=== PATIENT | male | born 1945 | race Caucasian/White ===

== ENCOUNTER → 2018-02-13 12:38 | Outpatient (CLI) | payer MEDICARE, SELFPAY ==
[2018-02-13 13:39] LABS: Add Manual Diff / Slide Review NO; Basophils Percent Auto 0.9 % (0-2); Eosinophils Percent Auto 5.3 % (2-4); Hemoglobin 12.8 g/dL (13.5-17.5); Lymphocytes Percent Auto 17.6 % (25-40); Mean Corpuscular HGB Conc 34.6 % (30-36); Mean Corpuscular Hemoglobin 31.6 PG (26-34); Mean Corpuscular Volume 91.4 fL (80-100); Neutrophils Absolute Auto 3500 /uL (3000-5900); Neutrophils Percent Auto 66.2 % (50-75); Platelet Count 158 X10^3/uL (150-400); Red Blood Cell Count 4.04 X10^6/uL (4.5-5.9); Red Cell Distribution Width 13.9 % (11.6-14.8); White Blood Cell Count 5.3 X10^3/uL (4.5-11.0)
[2018-02-13 13:50] LABS: Alanine Aminotransferase 26 IU/L (21-72); Albumin 4.1 g/dL (3.5-5.0); Albumin Globulin Ratio 1.6 (1.0-2.8); Alkaline Phosphatase 90 U/L (38-126); Aspartate Aminotransferase 21 IU/L (17-59); BUN Creatinine Ratio 24.4 (6-22); Bilirubin Total 0.4 mg/dL (0.2-1.3); Calcium 9.2 mg/dL (8.4-10.2); Estimated Glomerular Filt Rate > 60.0 mL/min (>60); Globulin 2.6 g/dL (1.7-4.1); Glucose 117 mg/dL (80-110); HEMOLYSIS < 15 (0-50); Potassium 4.1 mmol/L (3.4-5.1); Sodium 140 mmol/L (137-145); Total Protein 6.7 g/dL (6.3-8.2)
[2018-02-13 14:19] LABS: Prostate Specific Antigen < 0.064 ng/mL (0.10-4.00)
== END ==
PROVIDERS: Internal Medicine Hematology & Oncology; Family Provider Internal Medicine; PCP Internal Medicine; Visit Provider Specialist
DX: C61 Malignant neoplasm of prostate (principal)
CPT/HCPCS: 36415; 80053; 84153; 85025

== ENCOUNTER → 2018-05-14 13:35 | Outpatient (CLI) | payer MEDICARE, SELFPAY ==
[2018-05-14 14:01] LABS: Add Manual Diff / Slide Review NO; Basophils Percent Auto 0.8 % (0-2); Eosinophils Percent Auto 4.6 % (2-4); Hematocrit 37.3 % (41-53); Hemoglobin 12.9 g/dL (13.5-17.5); Lymphocytes Percent Auto 15.2 % (25-40); Mean Corpuscular HGB Conc 34.6 % (30-36); Mean Corpuscular Hemoglobin 31.6 PG (26-34); Mean Corpuscular Volume 91.2 fL (80-100); Monocytes Percent Auto 9.7 % (3-14); Neutrophils Absolute Auto 3900 /uL (3000-5900); Neutrophils Percent Auto 69.7 % (50-75); Platelet Count 170 X10^3/uL (150-400); Red Blood Cell Count 4.09 X10^6/uL (4.5-5.9); Red Cell Distribution Width 13.6 % (11.6-14.8); White Blood Cell Count 5.6 X10^3/uL (4.5-11.0)
[2018-05-14 14:14] LABS: Alanine Aminotransferase 29 IU/L (21-72); Albumin 4.2 g/dL (3.5-5.0); Albumin Globulin Ratio 1.8 (1.0-2.8); Alkaline Phosphatase 98 U/L (38-126); Aspartate Aminotransferase 26 IU/L (17-59); BUN Creatinine Ratio 18.9 (6-22); Bilirubin Total 0.3 mg/dL (0.2-1.3); Blood Urea Nitrogen 17 mg/dL (9-20); Calcium 9.2 mg/dL (8.4-10.2); Carbon Dioxide 27 mmol/L (22-32); Chloride 106 mmol/L (98-107); Estimated Glomerular Filt Rate > 60.0 mL/min (>60); Globulin 2.3 g/dL (1.7-4.1); Glucose 103 mg/dL (80-110); HEMOLYSIS < 15 (0-50); Potassium 3.9 mmol/L (3.4-5.1); Sodium 142 mmol/L (137-145); Total Protein 6.5 g/dL (6.3-8.2)
[2018-05-14 14:42] LABS: Prostate Specific Antigen < 0.064 ng/mL (0.10-4.00)
== END ==
PROVIDERS: Family Provider Internal Medicine; PCP Internal Medicine; Visit Provider Nurse Practitioner Gerontology
DX: C61 Malignant neoplasm of prostate (principal)
CPT/HCPCS: 36415; 80053; 84153; 85025

== ENCOUNTER → 2018-08-06 10:58 | Outpatient (CLI) | payer MEDICARE, SELFPAY ==
[2018-08-06 11:17] LABS: Add Manual Diff / Slide Review NO; Basophils Percent Auto 1.1 % (0-2); Eosinophils Percent Auto 4.7 % (2-4); Hematocrit 38.8 % (41-53); Hemoglobin 13.2 g/dL (13.5-17.5); Lymphocytes Percent Auto 19.3 % (25-40); Mean Corpuscular HGB Conc 33.9 % (30-36); Mean Corpuscular Hemoglobin 31.1 PG (26-34); Mean Corpuscular Volume 91.6 fL (80-100); Monocytes Percent Auto 9.6 % (3-14); Neutrophils Absolute Auto 3500 /uL (3000-5900); Neutrophils Percent Auto 65.3 % (50-75); Platelet Count 180 X10^3/uL (150-400); Red Blood Cell Count 4.24 X10^6/uL (4.5-5.9); White Blood Cell Count 5.3 X10^3/uL (4.5-11.0)
[2018-08-06 11:28] LABS: Alanine Aminotransferase 29 IU/L (21-72); Albumin 4.5 g/dL (3.5-5.0); Alkaline Phosphatase 90 U/L (38-126); Aspartate Aminotransferase 22 IU/L (17-59); BUN Creatinine Ratio 18.9 (6-22); Bilirubin Total 0.3 mg/dL (0.2-1.3); Blood Urea Nitrogen 17 mg/dL (9-20); Calcium 9.2 mg/dL (8.4-10.2); Carbon Dioxide 29 mmol/L (22-32); Chloride 105 mmol/L (98-107); Estimated Glomerular Filt Rate > 60.0 mL/min (>60); Globulin 2.3 g/dL (1.7-4.1); Glucose 93 mg/dL (80-110); HEMOLYSIS < 15 (0-50); Lactate Dehydrogenase 449 U/L (313-618); Potassium 4.2 mmol/L (3.4-5.1); Sodium 143 mmol/L (137-145); Total Protein 6.8 g/dL (6.3-8.2)
[2018-08-06 11:59] LABS: Prostate Specific Antigen < 0.064 ng/mL (0.10-4.00)
[2018-08-06 12:01] LABS: Testosterone 14.7 ng/dL (71.8-623)
--- NOTE | 2018-08-11 10:45 | P.PNONC_ITS ---
PN -Subjective Interval history: Lazarus is a 73-year-old male currently receiving treatment for metastatic castrate sensitive prostate cancer. Originally diagnosed 1995 status post radical prostatectomy [place] score was 3+3. Lazarus is currently receiving Lupron 22.5 mg every 3 months. The patient also has a history of follicular lymphoma, intermediate grade, in clinical remission since 2010. The patient presents today for routine 3 month evaluation. He has no new complaints whatsoever on exam today. Overall feeling quite well. No change in activity tolerance. No new pain, no new lumps or bumps. Appetite is stable, weight is stable. No issues with bladder or bowel habits. No recent illnesses or infections. Past Medical History The patient's past medical history is significant for: 1) Metastatic castrate sensitive prostate cancer with a PSA rise only. Original diagnosis in June 1996 status post radical prostatectomy with Dr. Castillo. [place] score was 3+3. PSA was undetectable until approximately 2113-0641: PSA recordings on March 2014, September 2014, May 2015, October 2015 , and April 2016, at 0.9, 1.52, 1.42, 1.69, and 2.1. Patient transferred care to the [facility] in April 2016. Clinical staging workup: -09/13/2015. CT of the chest abdomen and pelvis dated 09/13/2015. No evidence of measurable metastatic disease. -08/06/2016. Bone scan. reporting only degenerative joint changes. Treatment: 04/25/2016 -present. Lupron 7.5 mg. Baseline PSA 2.1. 2) Non-Hodgkin lymphoma, intermediate-grade follicular subtype, originally diagnosed in 2010. Patient presented with adenopathy in the left supraclavicular, as well as in the mesenteric region. He completed 4 cycles of bendamustine and Rituxan, last administered in May of 2012, followed by 3 cycles of maintenance Rituxan, last administered in April of 2013. No radiation to the right ankle was administered. Patient remains in a clinical remission based on his last staging CT scan as described above, dated September 13, 2015. 3) right plantar fasciitis with recent imaging studies including MRI of the foot and ankle on 04/24/2016 showing no evidence of lymphoma. Home Medications and Allergies Home Medications Medication Instructions Recorded Confirmed Type acetaminophen [Tylenol Extra 500 mg PO Q6HP PRN #0 11/28/17 History Strength] leuprolide (3 month) [Lupron Depot 22.5 mg IM #0 11/28/17 History (3 month)] Allergies Allergy/AdvReac Type Severity Reaction Status Date / Time penicillin G Allergy Severe SWELLING/?ANAPHYLAXIS Unverified 01/15/18 12:55 CHILD doxycycline Allergy Mild RASH Unverified 01/15/18 12:55 Iodine and Iodide Containing Allergy Mild TOPICAL Unverified 01/15/18 12:55 Produc OKAY shellfish derived Allergy Mild Unverified 01/15/18 12:55 Exam - Constitutional positive no acute distress, positive average body habitus - Routine HEENT Exam Eye: Present: conjunctivae pink. Absent: conjunctival icterus, scleral injection ENT: Present: mucous membranes moist, oropharynx clear - Routine Neck Exam Present: supple. Absent: lymphadenopathy - Routine Chest/Breast/Axilla Exam Axillae: Absent: lymphadenopathy, mass, tenderness - Routine Respiratory Exam Present: Clear to auscultation bilaterally - Routine Cardiovascular Exam Present: RRR, S1, S2 - Routine Abdominal Exam Present: soft, normoactive bowel sounds. Absent: tenderness, distended, organomegaly, mass - Routine Extremities Exam Absent: edema, calf tenderness - Routine Skin Exam Present: intact, normal turgor. Absent: petechiae - Routine Neurological Exam Present: alert, oriented X3 - Routine Psychiatric Exam Present: normal affect Results - Labs Laboratory Last Values WBC 5.3 X10^3/uL (4.5-11.0) 08/06/18 11:06 RBC 4.24 X10^6/uL (4.5-5.9) L 08/06/18 11:06 Hgb 13.2 g/dL (13.5-17.5) L 08/06/18 11:06 Hct 38.8 % (41-53) L 08/06/18 11:06 MCV 91.6 fL (80-100) 08/06/18 11:06 MCH 31.1 PG (26-34) 08/06/18 11:06 MCHC 33.9 % (30-36) 08/06/18 11:06 RDW 14.0 % (11.6-14.8) 08/06/18 11:06 Plt Count 180 X10^3/uL (150-400) 08/06/18 11:06 Neut % (Auto) 65.3 % (50-75) 08/06/18 11:06 Lymph % (Auto) 19.3 % (25-40) L 08/06/18 11:06 [place] % (Auto) 9.6 % (3-14) 08/06/18 11:06 Eos % (Auto) 4.7 % (2-4) H 08/06/18 11:06 Baso % (Auto) 1.1 % (0-2) 08/06/18 11:06 Neut # (Auto) 3500 /uL (7023-8315) 08/06/18 11:06 Sodium 143 mmol/L (137-145) 08/06/18 11:06 Potassium 4.2 mmol/L (3.4-5.1) 08/06/18 11:06 Chloride 105 mmol/L (98-107) 08/06/18 11:06 Carbon Dioxide 29 mmol/L (22-32) 08/06/18 11:06 BUN 17 mg/dL (9-20) 08/06/18 11:06 Creatinine 0.90 mg/dL (0.66-1.25) 08/06/18 11:06 Estimated GFR > 60.0 mL/min (>60) 08/06/18 11:06 BUN/Creatinine Ratio 18.9 (6-22) 08/06/18 11:06 Glucose 93 mg/dL (80-110) 08/06/18 11:06 Calcium 9.2 mg/dL (8.4-10.2) 08/06/18 11:06 Total Bilirubin 0.3 mg/dL (0.2-1.3) 08/06/18 11:06 AST 22 IU/L (17-59) 08/06/18 11:06 ALT 29 IU/L (21-72) 08/06/18 11:06 Alkaline Phosphatase 90 U/L (38-126) 08/06/18 11:06 Lactate Dehydrogenase 449 U/L (313-618) 08/06/18 11:06 Total Protein 6.8 g/dL (6.3-8.2) 08/06/18 11:06 Albumin 4.5 g/dL (3.5-5.0) 08/06/18 11:06 Globulin 2.3 g/dL (1.7-4.1) 08/06/18 11:06 Albumin/Globulin Ratio 2.0 (1.0-2.8) 08/06/18 11:06 Prostate Specific Ag < 0.064 ng/mL (0.10-4.00) L 08/06/18 11:06 Testosterone Level 14.7 ng/dL (71.8-623) L 08/06/18 11:06 - Imaging Additional studies: Procedures Biopsy of bone marrow (08/05/12) Closed [percutaneous] [needle] biopsy of lung (06/18/12) Endoscopic destruction of other lesion or tissue of large intestine (04/06/14) Endoscopic polypectomy of large intestine (04/06/14) Rhinoscopy (12/02/13) Assessment and Plan (1) Malignant neoplasm of prostate Status: Acute This is a 73-year-old male who carries a diagnosis of metastatic castrate sensitive prostate cancer. He has no new complaints on exam today. PSA remains undetectable, testosterone is appropriately low. He is tolerating Lupron without reportable adverse effects. Green light today for Lupron injection 22.5 mg. Continue every 3 months. (2) Non-Hodgkin's lymphoma Onset Date: 08/13/13 Status: None This is a 73-year-old male who carries a history of follicular lymphoma, intermediate grade in clinical remission since 2010. Reassuringly on exam today he has no clinical signs or symptoms to suggest disease recurrence. LDH is within normal limits. No new pain, no new lumps or bumps.
== END ==
PROVIDERS: Family Provider Internal Medicine; PCP Internal Medicine; Visit Provider Internal Medicine Hematology & Oncology
DX: C61 Malignant neoplasm of prostate (principal)
CPT/HCPCS: 36415; 80053; 83615; 84153; 84403; 85025

== ENCOUNTER → 2018-10-31 14:31 | Outpatient (CLI) | payer MEDICARE, SELFPAY ==
[2018-10-31 16:31] LABS: Alanine Aminotransferase 31 IU/L (21-72); Albumin 4.2 g/dL (3.5-5.0); Albumin Globulin Ratio 1.8 (1.0-2.8); Alkaline Phosphatase 100 U/L (38-126); Aspartate Aminotransferase 22 IU/L (17-59); BUN Creatinine Ratio 17.8 (6-22); Bilirubin Total 0.2 mg/dL (0.2-1.3); Blood Urea Nitrogen 16 mg/dL (9-20); Calcium 9.1 mg/dL (8.4-10.2); Carbon Dioxide 25 mmol/L (22-32); Chloride 104 mmol/L (98-107); Estimated Glomerular Filt Rate > 60.0 mL/min (>60); Globulin 2.3 g/dL (1.7-4.1); Glucose 111 mg/dL (80-110); HEMOLYSIS < 15 (0-50); Lactate Dehydrogenase 456 U/L (313-618); Potassium 4.3 mmol/L (3.4-5.1); Sodium 140 mmol/L (137-145); Total Protein 6.5 g/dL (6.3-8.2)
[2018-10-31 16:40] LABS: Add Manual Diff / Slide Review NO; Basophils Absolute Auto 0 /uL (0-100); Basophils Percent Auto 0.7 % (0-2); Eosinophils Absolute Auto 200 /uL (0-450); Eosinophils Percent Auto 4.3 % (2-4); Hematocrit 37.8 % (41-53); Hemoglobin 12.9 g/dL (13.5-17.5); Lymphocytes Absolute Auto 900 /uL (1100-4500); Lymphocytes Percent Auto 18.7 % (25-40); Mean Corpuscular HGB Conc 34.1 % (30-36); Mean Corpuscular Hemoglobin 31.3 PG (26-34); Mean Corpuscular Volume 91.7 fL (80-100); Monocytes Absolute Auto 500 /uL (0-900); Monocytes Percent Auto 9.9 % (3-14); Neutrophils Absolute Auto 3200 /uL (1500-7000); Neutrophils Percent Auto 66.4 % (50-75); Platelet Count 173 X10^3/uL (150-400); Red Blood Cell Count 4.12 X10^6/uL (4.5-5.9); Red Cell Distribution Width 14.1 % (11.6-14.8); White Blood Cell Count 4.9 X10^3/uL (4.5-11.0)
== END ==
PROVIDERS: Family Provider Internal Medicine; PCP Internal Medicine; Visit Provider Nurse Practitioner Gerontology
DX: C61 Malignant neoplasm of prostate (principal)
CPT/HCPCS: 36415; 80053; 83615; 84153; 85025

== ENCOUNTER → 2019-03-04 11:18 | Outpatient (CLI) | payer MEDICARE, SELFPAY ==
[2019-03-04 12:53] LABS: Prostate Specific Antigen 0.079 ng/mL (0.10-4.00)
[2019-03-04 12:55] LABS: Testosterone 5.7 ng/dL (71.8-623)
== END ==
PROVIDERS: Family Provider Internal Medicine; PCP Internal Medicine; Visit Provider Internal Medicine Hematology & Oncology
DX: C61 Malignant neoplasm of prostate (principal)
CPT/HCPCS: 36415; 84153; 84403

== ENCOUNTER 2019-03-06 08:45 | Day surgery (SDC) | payer MEDICARE, SELFPAY ==
--- NOTE | 2019-03-06 | PATH_ITS ---
[facility] Accession Number: [id number] . 01 Material submitted: . PART A: colon - TRANSVERSE COLON POLYP PART B: colon - CECAL POLYP PART C: colon - COLON POLYP AT 40CM PART D: rectum - RECTAL POLYP AND BIOPSY . 02 Diagnosis: A. Transverse Colon, Polyp, Biopsy: Tubular adenoma. . B. Cecum, Polyp, Biopsy: Sessile serrated adenoma. . C. Colon, Polyp At 40 CM, Biopsy: Colonic mucosa with surface hyperplastic-type changes. Additional levels were examined. Negative for dysplasia and malignancy. . D. Rectum, Polyp And Biopsy: Tubulovillous adenoma. No evidence of malignancy or high-grade dysplasia. [facility]2019 . 02 Electronically signed: . Loretta Samuel MD, Pathologist NPI- [id number] . 01 Gross description: . Part A: TRANSVERSE COLON POLYP: Received in formalin is 1 fragment(s) of bernal, soft tissue measuring 0.3 x 0.2 x 0.2 cm which is entirely submitted and submitted entirely in 1 cassette(s) Part B: CECAL POLYP: Received in formalin is 1 fragment(s) of bernal, soft tissue measuring 0.8 x 0.5 x 0.3 cm which is entirely submitted and submitted entirely in 1 cassette(s) Part C: COLON POLYP AT 40CM: Received in formalin are 2 fragment(s) of bernal, soft tissue measuring 0.3 x 0.2 x 0.2 cm to 0.4 x 0.3 x 0.2 cm which is entirely submitted and submitted entirely in 1 cassette(s) Part D: RECTAL POLYP AND BIOPSY: Received in formalin are multiple fragment(s) of bernal, soft tissue measuring 0.1 x 0.1 x 0.1 cm to 1.4 x 1.1 x 1.0 cm which are sectioned and submitted entirely in 2 cassette(s) /[facility] . 02 Pathologist provided ICD-10: D12.0, D12.3, D12.8 . 02 CPT . 003855, 581325, 179559, 759113 Performed at: 01 [facility] [address] [id number] MD Trenton Astudillo MD Phone: [phone] Performed at: 02 [facility] [address] [place], [place] [id number] MD Loretta Samuel MD Phone: [phone]
[2019-03-06 09:39] VITALS: BP 128/81; PULSE 71; RESP 15; TEMP 36; O2SAT 98; BMI 24.9
[2019-03-06] MEDS: SODIUM CHLORIDE 0.9% 1,000 ML 200 ML IV (09:47)
--- NOTE | 2019-03-06 10:55 | PM.HP.1 ---
History of Present Illness Date Patient Seen: 03/06/19 Time Patient Seen: 10:55 Chief complaint: [id number] Narrative: Patient is here for screening colonoscopy. He has had polyps removed in the past. Last exam was 5 years ago. Patient History Surgical History Status post radical cystoprostatectomy Family History (Updated 11/09/13 @ 00:00 by Lazarus Albrecht MD) Father Family hx of prostate cancer Mother Fam hx-ischem heart disease Family history of diabetes mellitus (DM) Social History household members: spouse Family & Social History Family History Father Family hx of prostate cancer Mother Fam hx-ischem heart disease Family history of diabetes mellitus (DM) Social History: household members spouse Meds Home Medications Medication Instructions Recorded Confirmed Type Lupron Depot (3 month) 22.5 mg IM [id number] #0 11/28/17 03/06/19 History ibuprofen 200 mg PO Q4-6H PRN 03/06/19 03/06/19 History Allergies Allergy/AdvReac Type Severity Reaction Status Date / Time penicillin G Allergy Severe SWELLING/?ANAPHYLAXIS Verified 03/06/19 09:48 CHILD doxycycline Allergy Mild RASH Verified 03/06/19 09:48 Iodine and Iodide Containing Allergy Mild TOPICAL Verified 03/06/19 09:48 Produc OKAY shellfish derived Allergy Mild Verified 03/06/19 09:48 Review of Systems Review of Systems All systems reviewed & are unremarkable except as noted in HPI and below ENT Comments: Sinus drainage Gastrointestinal Comments: Some constipation at times Exam Vital Signs (past 8 hours): - 03/06/19 09:39 Temperature 96.8 F L Pulse Rate 71 Respiratory Rate 15 Blood Pressure 128/81 Pulse Oximetry 98 Narrative Exam Narrative: Pleasant cooperative patient no apparent distress. Lungs are clear to auscultation. No rales or rhonchi. Heart regular rate and rhythm no murmur gallop. Abdomen is soft nontender without mass. Vertical midline lower abdominal scar noted from the prostate operation. No obvious hernias. Patient is alert and oriented x3. Assessment & Plan Assessment & Plan narrative: The patient for a screening colonoscopy. I have discussed the procedure with them. Risks of bleeding, perforation which would necessitate major operation, failure to find remove all lesions, the potential tattoo were all discussed. All questions were answered. They wished to proceed.
--- NOTE | 2019-03-06 10:57 | PM.PREOP ---
Pre-operative Note Interval Note History & Physical reviewed/Exam performed by Physician: Yes Changes to H&P: No ASA Class (for procedural sedation): II
[2019-03-06] MEDS: MIDAZOLAM 5 MG/5 ML VIAL IV (11:23)
[2019-03-06] MEDS: fentaNYL 250 MCG/5 ML INJ IV (11:23)
--- NOTE | 2019-03-06 11:45 | PM.OP.ENDO ---
Operative Date/Time/Diagnoses Date of procedure: 03/06/19 Time of procedure: 11:45 Pre-op diagnosis: History of polyps. Post-op diagnosis: same (Multiple polyps including 1 rather large 2 cm rectal polyp) Procedure & Clinicians Study performed: Colonoscopy with cold biopsy and hot snare polypectomy Same procedure as scheduled: Yes Indications: Screening. History of polyps. Last exam 5 years ago. Surgeon: Phillip Decker Procedure Notes SCOAP/Timeout: Performed Procedure in detail: The patient was placed in the left lateral decubitus position and underwent IV sedation directed by the surgeon consisting of fentanyl and Versed. Digital exam was unremarkable. No palpable prostate.. The scope was inserted and advanced through the rectum into the sigmoid, descending, transverse, and ascending colon. A small lesion was seen presumptively in the transverse colon on the way in which was biopsied and removed. The cecum was reached identified by the ileocecal valve and the appendiceal opening. The ileocecal valve was not cannulated. There was a small perhaps 1 cm flat polyp in the cecum which was snared and appeared to be completely removed. Edges were cauterized just in case. The scope was gradually brought out. Polyps were found at 40 cm and in the rectum. The polyp in the rectum initially was a small polyp. Identified a much larger when near by. This was snared in multiple pieces.. The scope ultimately was retroflexed in the rectum. Once I had completed the patella packed a me it appeared to be completely removed with no residual. The appearance was otherwise normal on retroflexed view. There was some scarring at the anus.. The scope was removed and the patient tolerated the procedure well. Prep was very good. Scope withdrawal time: 10min(excludes polypectomy vianey Findings: polyp (Multiple in cecum, of transverse colon(may have been labeled ascending), 40 cm, rectum.) Specimen(s): other (Polyps) Complications: none Recommendations: Other recommendation (Flexible sigmoidoscopy to examine the lesion just inside the anus to make sure there is no residual or regrowth.) Follow up: months (6) Disposition: PACU
[2019-03-06 11:50] VITALS: BP 108/59; PULSE 63; RESP 15; TEMP 36.3; O2SAT 99
[2019-03-06 11:55] VITALS: BP 107/60; PULSE 59; RESP 18; O2SAT 99
[2019-03-06 12:00] VITALS: BP 136/75; PULSE 68; RESP 20; TEMP 36.4; O2SAT 97
[2019-03-06 12:04] VITALS: BP 116/72; PULSE 70; RESP 15; TEMP 36.2; O2SAT 93
[2019-03-06 12:14] VITALS: BP 126/79; PULSE 66; RESP 15; TEMP 36.2; O2SAT 98
== END 2019-03-06 12:21 | disposition home or self-care (01) ==
PROVIDERS: Family Provider Internal Medicine; PCP Internal Medicine; Visit Provider Specialist
PROC: 0DJD8ZZ Inspection of Lower Intestinal Tract, Via Natural or Artificial Opening Endoscopic (ICD-10-PCS; CPT 45378; principal; 2019-03-06 10:45)
DX: Z86.010 Personal history of colon polyps (principal); D12.0 Benign neoplasm of cecum; D12.3 Benign neoplasm of transverse colon; D12.8 Benign neoplasm of rectum
CPT/HCPCS: 45385; 45380; 88305; J2250; J3010

== ENCOUNTER 2019-09-10 06:28 | Day surgery (SDC) | payer MEDICARE, SELFPAY ==
--- NOTE | 2019-09-10 | PATH_ITS ---
[facility] Accession Number: [id number] . 01 Material submitted: . colon - POLYP NEAR ANAL VERGE . 02 Diagnosis: Rectum, Near Anal Verge, Polyp: Hyperplastic polyp. [facility] 09/11/2019 1037 Local . 02 Electronically signed: . Matteo Acuña MD, PhD, Pathologist NPI- [id number] . 01 Gross description: . POLYP NEAR ANAL VERGE: Received in formalin are 2 fragment(s) of bernal, soft tissue measuring 0.1 x 0.1 x 0.1 cm to 0.3 x 0.2 x 0.2 cm submitted entirely in 1 cassette(s) /[facility] 09/10/2019 1903 Local . 02 Pathologist provided ICD-10: K62.1 . 02 CPT . 732242 Performed at: 01 [facility] [address] [id number] MD Trenton Astudillo MD Phone: [phone] Performed at: 02 [facility] [address] [facility] [place], [place] [id number] MD Loretta Samuel MD Phone: [phone]
[2019-09-10 07:05] VITALS: BP 142/76; PULSE 96; RESP 64; TEMP 36.4; O2SAT 15; BMI 24.0
--- NOTE | 2019-09-10 08:02 | PM.HP.1 ---
History of Present Illness History of Present Illness Date Patient Seen: 09/10/19 Time Patient Seen: 07:51 Chief complaint: [id number] Narrative: The patient is a gentleman here for a flexible sigmoidoscopy he has had a large polyp removed from his rectum 5 years ago and had a recurrence in the area about 6 months ago which was removed he is here to have a flexible sigmoidoscopy to make sure nothing has grown back in that area. Patient History Surgical History Status post radical cystoprostatectomy Family & Social History Family History Father Family hx of prostate cancer Mother Fam hx-ischem heart disease Family history of diabetes mellitus (DM) Social History: household members spouse Meds Home Medications and Allergies Home Medications Medication Instructions Recorded Confirmed Type Lupron Depot (3 month) 22.5 mg IM [id number] #0 11/28/17 08/03/19 History ibuprofen 200 mg PO Q4-6H PRN 03/06/19 09/10/19 History calcium carbonate [Calcium 500] 500 mg PO DAILY 05/04/19 09/10/19 History Allergies Allergy/AdvReac Type Severity Reaction Status Date / Time penicillin G Allergy Severe SWELLING/?ANAPHYLAXIS Verified 09/10/19 07:02 CHILD doxycycline Allergy Mild RASH Verified 09/10/19 07:02 Iodine and Iodide Containing Allergy Mild TOPICAL Verified 09/10/19 07:02 Produc OKAY shellfish derived Allergy Mild Verified 09/10/19 07:02 Review of Systems Review of Systems ROS Unobtainable: All systems reviewed & are unremarkable except as noted in HPI and below Exam Vital Signs (past 8 hours): - 09/10/19 07:05 Temperature 97.6 F Pulse Rate 96 H Respiratory Rate 64 H Blood Pressure 142/76 H Pulse Oximetry 15 L Oxygen Delivery Method Room Air Narrative Exam Narrative: Pleasant cooperative patient no apparent distress. Lungs are clear to auscultation. No rales or rhonchi. Heart regular rate and rhythm no murmur gallop. Abdomen is soft nontender without mass. No obvious hernias. Patient is alert and oriented x3. Assessment & Plan Assessment & Plan narrative: The patient for a flexible sigmoidoscopy. I have discussed the procedure with them. Risks of bleeding, perforation which would necessitate major operation, failure to find remove all lesions. All questions were answered. They wished to proceed.
--- NOTE | 2019-09-10 08:04 | PM.PREOP ---
Pre-operative Note Interval Note History & Physical reviewed/Exam performed by Physician: Yes Changes to H&P: No ASA Class (for procedural sedation): II
--- NOTE | 2019-09-10 08:20 | PM.OP.ENDO ---
Operative Date/Time/Diagnoses Date of procedure: 09/10/19 Time of procedure: 08:20 Pre-op diagnosis: History large rectal polyp Post-op diagnosis: same (No residual polyp seen. No regrowth.) Procedure & Clinicians Study performed: Flexible sigmoidoscopy with biopsy Same procedure as scheduled: Yes Indications: Patient has had recurrent large rectal polyps. He had 1 remove 6 months ago. He is here to make sure nothing has grown back and that the complete lesion was removed Surgeon: Phillip Decker Procedure Notes SCOAP/Timeout: Performed Procedure in detail: The patient is placed in left lateral decubitus position. Digital exam was unremarkable. I could not feel is prostate. The scope was inserted and advanced to a level of 55. There is an gradually brought out. No lesions were seen going in or out. I did a very slow careful exam. I retroflexed in the rectum a small a very tiny lesion not far from the anal verge. I biopsied and removed this. I did see an area that appeared to be scarred probably represents the scarred base of where I removed his polyp at the last colonoscopy 6 months ago. The scope was removed and the patient tolerated the procedure well. Scope withdrawal time: Not applicable Sedation minutes: 0 (Patient was not sedated) Findings: polyp Specimen(s): other (Polyp) Complications: none Post-procedure Recommendations: Colonscopy in 3 years (Due to his propensity to form large polyps at 5 year intervals) Follow up: as needed Disposition: same day surgery
[2019-09-10 08:27] VITALS: BP 140/76; PULSE 54; RESP 20; TEMP 36.1; O2SAT 98
== END 2019-09-10 08:44 | disposition home or self-care (01) ==
PROVIDERS: Family Provider Internal Medicine; PCP Internal Medicine; Visit Provider Specialist
PROC: 0DJD8ZZ Inspection of Lower Intestinal Tract, Via Natural or Artificial Opening Endoscopic (ICD-10-PCS; CPT 45378; principal; 2019-09-10 07:45)
DX: K62.1 Rectal polyp (principal)
CPT/HCPCS: 45331; J2250; J3010

== ENCOUNTER → 2019-09-24 11:46 | Outpatient (CLI) | payer MEDICARE, SELFPAY ==
--- NOTE | 2019-09-24 11:49 | DI.RAD.S_ITS ---
PROCEDURE: XR CHEST 2V INDICATIONS: lump in epigastric, ? xyphoid process TECHNIQUE: 2 views of the chest were acquired. COMPARISON: [facility], , CHEST 2 VIEW, 11/21/2016, 9:47. [facility], , CHEST 1 VIEW, 01/10/2016, 14:12. FINDINGS: Surgical changes and devices: None. Lungs and pleura: Lungs are clear. No pleural effusions or pneumothorax. Mediastinum: Mediastinal contours are normal. Heart size is normal. Bones and chest wall: No suspicious bony abnormalities. Soft tissues appear unremarkable. IMPRESSION: Normal for age, source of current palpable abnormality in the anterior midline chest symptoms is not seen. Dictated by: Bridger Hung M.D. on 09/24/2019 at 13:54 Approved by: Bridger Hung M.D. on 09/24/2019 at 13:54
== END ==
PROVIDERS: Family Provider Internal Medicine; PCP Internal Medicine; Visit Provider Internal Medicine Hematology & Oncology
DX: C61 Malignant neoplasm of prostate (principal); R19.06 Epigastric swelling, mass or lump
CPT/HCPCS: 71046

== ENCOUNTER → 2019-11-16 08:55 | Outpatient (CLI) | payer MEDICARE, SELFPAY ==
[2019-11-16 09:34] LABS: Add Manual Diff / Slide Review NO; Basophils Absolute Auto 100 /uL (0-100); Basophils Percent Auto 1.2 % (0-2); Eosinophils Absolute Auto 500 /uL (0-450); Eosinophils Percent Auto 10.9 % (2-4); Hematocrit 37.1 % (41-53); Hemoglobin 12.6 g/dL (13.5-17.5); Lymphocytes Absolute Auto 900 /uL (1100-4500); Lymphocytes Percent Auto 18.9 % (25-40); Mean Corpuscular Hemoglobin 31.4 PG (26-34); Mean Corpuscular Volume 92.2 fL (80-100); Monocytes Absolute Auto 500 /uL (0-900); Neutrophils Absolute Auto 2700 /uL (1500-7000); Platelet Count 162 X10^3/uL (150-400); Red Blood Cell Count 4.02 X10^6/uL (4.5-5.9); Red Cell Distribution Width 13.7 % (11.6-14.8); White Blood Cell Count 4.5 X10^3/uL (4.5-11.0)
[2019-11-16 09:42] LABS: Alanine Aminotransferase 17 IU/L (<50); Albumin 4.2 g/dL (3.5-5.0); Albumin Globulin Ratio 1.7 (1.0-2.8); Alkaline Phosphatase 80 U/L (38-126); Aspartate Aminotransferase 25 IU/L (17-59); BUN Creatinine Ratio 18.9 (6-22); Bilirubin Total 0.3 mg/dL (0.2-1.3); Blood Urea Nitrogen 17 mg/dL (9-20); Calcium 9.4 mg/dL (8.4-10.2); Carbon Dioxide 27 mmol/L (22-32); Chloride 106 mmol/L (98-107); Estimated Glomerular Filt Rate > 60.0 mL/min (>60); Globulin 2.5 g/dL (1.7-4.1); Glucose 102 mg/dL (80-110); HEMOLYSIS < 15 (0-50); Lactate Dehydrogenase 416 U/L (313-618); Potassium 4.1 mmol/L (3.4-5.1); Sodium 142 mmol/L (137-145); Total Protein 6.7 g/dL (6.3-8.2)
[2019-11-16 10:12] LABS: Prostate Specific Antigen 0.116 ng/mL (0.10-4.00)
[2019-11-16 10:15] LABS: Testosterone 5.61 ng/dL (71.8-623)
[2019-11-18 15:08] LABS: Beta-2-Microglobulin 2.02 mg/L (< 2.52)
== END ==
PROVIDERS: Family Provider Internal Medicine; PCP Internal Medicine; Referring Provider Internal Medicine Hematology & Oncology; Visit Provider Internal Medicine Hematology & Oncology
DX: C61 Malignant neoplasm of prostate (principal); C85.90 Non-Hodgkin lymphoma, unspecified, unspecified site
CPT/HCPCS: 36415; 80053; 82232; 83615; 84153; 84403; 85025

== ENCOUNTER → 2019-11-26 15:28 | Outpatient (CLI) | payer MEDICARE, SELFPAY ==
--- NOTE | 2019-11-26 15:30 | DI.MRI.S_ITS ---
PROCEDURE: MR PELIS WO/W CON INDICATIONS: castration refractory prostate cancer TECHNIQUE: Noncontrast coronal T1 spin echo and STIR, sagittal T1 spin echo with fat saturation and STIR, axial T1 spin echo and T2 fast spin echo with fat saturation. After the administration of contrast, axial/sagittal/coronal T1 spin echo with fat saturation through the pelvis. COMPARISON: [facility], CT, NECK/CHEST/ABD/PEL W CONTRAST, 09/13/2015, 10:01. [facility], [place], BONE SCAN WHOLE BODY, 08/06/2016, 13:25. FINDINGS: Image quality: Excellent. Bones: The visualized bone marrow demonstrates normal signal on all sequences except for the presence of a 1 cm diameter contrast enhancing indistinctly marginated focus within the posterior third of the right iliac wing portion of the sacral iliac joint, seen posteriorly on series 33 image 21. This also can be seen on coronal post contrast imaging series 34 image 143, and as a slightly elevated focus of diffusion signal on series 35 image 33. The overlying cortex appears intact. No abnormal intraosseous enhancement. Soft tissues: No soft tissue masses are visualized. The scanned muscles demonstrate normal overall bulk and internal signal. Subcutaneous tissues appear normal as well. No abnormal soft tissue enhancement. The prostate gland appears diminutive or surgically absent, and no malignant appearing mass in the prostate fossa is found. The adjacent deep pelvic structures appear free of adenopathy or infiltrative neoplasm. IMPRESSION: 1. Probable prior prostatectomy, diminutive or absent prostate parenchyma in the resection bed. 2. No adenopathy is seen. 3. Single 1 cm focus of mildly abnormal marrow space within the posterior third of the iliac bone portion of the right sacroiliac joint area. As noted, this shows slight indistinctly marginated contrast enhancement and mild elevated diffusion signal and may represent a focus of osseous metastatic disease. Dictated by: Bridger Hung M.D. on 11/27/2019 at 14:45 Approved by: Bridger Hung M.D. on 11/27/2019 at 14:55
== END ==
PROVIDERS: Family Provider Internal Medicine; PCP Internal Medicine; Referring Provider Internal Medicine Hematology & Oncology; Visit Provider Internal Medicine Hematology & Oncology
DX: C61 Malignant neoplasm of prostate (principal)
CPT/HCPCS: 72197; A9579

== ENCOUNTER → 2019-12-31 09:03 | Outpatient (CLI) | payer MEDICARE, SELFPAY ==
--- NOTE | 2019-12-31 09:04 | DI.NM.S_ITS ---
PROCEDURE: AR BONE SCAN WHOLE BODY RADIOPHARMACEUTICAL: 15.5 mCi Tc-99m MDP IV. INDICATIONS: prostate cancer, abn MR signal iliac bone, rising PSA TECHNIQUE: Delayed whole-body scintigrams were obtained approximately 3-4 hours after intravenous injection of radiotracer. Anterior and posterior views were acquired from vertex to feet. Additional oblique images of the pelvis were obtained. COMPARISON: [facility], , MR PELVIS WO/W CON, 11/26/2019, 16:50. [facility], [place], BONE SCAN WHOLE BODY, 08/06/2016, 13:25. FINDINGS: No lesion is identified in the right iliac bone. No abnormalities are identified in skull, sternum, clavicles, scapulae, ribs, bony pelvis, and visualized shafts of the long bones. There is low level increased uptake in cervical, thoracic and lumbar spine with distribution indistinguishable from degenerative disc and facet disease; early metastasis to spine could be obscured by degenerative changes. There are foci of increased periarticular activity involving shoulders, sternoclavicular joints, wrists, hips and right ankle, compatible with degenerative/arthritic changes. IMPRESSION: 1. No bone scan finding to correlate with signal abnormality in the right iliac bone. 2. Stable bone scan. No definitive scintigraphic findings for osseous metastases. Please correlate with serum PSA. Dictated by: Claire Encarnacion M.D. on 12/31/2019 at 14:56 Approved by: Claire Encarnacion M.D. on 12/31/2019 at 17:49
== END ==
PROVIDERS: Family Provider Internal Medicine; PCP Internal Medicine; Referring Provider Internal Medicine Hematology & Oncology; Visit Provider Internal Medicine Hematology & Oncology
DX: C61 Malignant neoplasm of prostate (principal); R97.20 Elevated prostate specific antigen [PSA]
CPT/HCPCS: 78306; A9503

== ENCOUNTER → 2020-02-08 08:27 | Outpatient (CLI) | payer MEDICARE, SELFPAY ==
[2020-02-08 09:50] LABS: Add Manual Diff / Slide Review NO; Basophils Absolute Auto 0 /uL (0-100); Basophils Percent Auto 0.9 % (0-2); Eosinophils Absolute Auto 200 /uL (0-450); Eosinophils Percent Auto 3.9 % (2-4); Hematocrit 39.4 % (41-53); Hemoglobin 13.3 g/dL (13.5-17.5); Lymphocytes Absolute Auto 800 /uL (1100-4500); Lymphocytes Percent Auto 19.4 % (25-40); Mean Corpuscular HGB Conc 33.9 % (30-36); Mean Corpuscular Hemoglobin 31.9 PG (26-34); Mean Corpuscular Volume 94.1 fL (80-100); Monocytes Absolute Auto 500 /uL (0-900); Monocytes Percent Auto 10.5 % (3-14); Neutrophils Absolute Auto 2800 /uL (1500-7000); Neutrophils Percent Auto 65.3 % (50-75); Platelet Count 155 X10^3/uL (150-400); Red Blood Cell Count 4.18 X10^6/uL (4.5-5.9); Red Cell Distribution Width 13.9 % (11.6-14.8); White Blood Cell Count 4.4 X10^3/uL (4.5-11.0)
[2020-02-08 10:11] LABS: Alanine Aminotransferase 17 IU/L (<50); Albumin 4.4 g/dL (3.5-5.0); Albumin Globulin Ratio 1.6 (1.0-2.8); Alkaline Phosphatase 76 U/L (38-126); Aspartate Aminotransferase 24 IU/L (17-59); BUN Creatinine Ratio 20.7 (6-22); Bilirubin Total 0.4 mg/dL (0.2-1.3); Blood Urea Nitrogen 19 mg/dL (9-20); Calcium 9.9 mg/dL (8.4-10.2); Carbon Dioxide 30 mmol/L (22-32); Chloride 104 mmol/L (98-107); Estimated Glomerular Filt Rate > 60.0 mL/min (>60); Globulin 2.7 g/dL (1.7-4.1); Glucose 71 mg/dL (80-110); HEMOLYSIS < 15 (0-50); Potassium 4.1 mmol/L (3.4-5.1); Sodium 142 mmol/L (137-145); Total Protein 7.1 g/dL (6.3-8.2)
[2020-02-08 10:44] LABS: Testosterone 6.74 ng/dL (71.8-623)
[2020-02-08 10:46] LABS: Prostate Specific Antigen < 0.064 ng/mL (0.10-4.00)
== END ==
PROVIDERS: Family Provider Internal Medicine; PCP Internal Medicine; Referring Provider Internal Medicine Hematology & Oncology; Visit Provider Internal Medicine Hematology & Oncology
DX: C61 Malignant neoplasm of prostate (principal)
CPT/HCPCS: 36415; 80053; 84153; 84403; 85025

== ENCOUNTER → 2020-06-15 07:42 | Outpatient (CLI) | payer MEDICARE, SELFPAY ==
--- NOTE | 2020-06-15 09:08 | DI.CT.S_ITS ---
PROCEDURE: CT CHEST ABD PEL W CON INDICATIONS: weight loss, history of follicular lymphoma TECHNIQUE: After the administration of oral and intravenous contrast, 5 mm thick sections acquired from the lung apices to the symphysis. 5 mm coronal and sagittal reformats were performed, with additional 7 mm coronal MIP reformats through the lungs. For radiation dose reduction, the following was used: automated exposure control, adjustment of mA and/or kV according to patient size. COMPARISON: [facility], CT, NECK/CHEST/ABD/PEL W CONTRAST, 09/13/2015, 10:01. [facility], NM, BONE SCAN WHOLE BODY, 08/06/2016, 13:25. [facility], MR, MR PELVIS WO/W CON, 11/26/2019, 16:50. [facility], CT, CHEST/ABD/PEL WITH CONTRAST, 05/29/2012, 10:05. FINDINGS: Image quality: Excellent. CHEST: Lungs and pleura: An area of linear scarring is redemonstrated peripherally in the right lower lobe. Mild scarring also again noted in the lung apices and bases. There is mild dependent atelectasis. No new suspicious nodules or mass lesions. The trachea and central airways appear patent. There are few small filling defects within a right lower lobe subsegmental bronchus likely representing mucous plugging. No pleural effusions or pneumothorax. Mediastinum: Heart size is normal. No pericardial effusion. No mediastinal or hilar adenopathy by size criteria. Thoracic aorta and central pulmonary arteries are normal in size. Esophagus is normal in caliber. No hiatal hernia. Chest wall: No axillary or supraclavicular adenopathy by size criteria. Thyroid gland demonstrates no discrete nodules. ABDOMEN: Solid organs: A cyst is redemonstrated within the posterior left hepatic lobe, measuring up to 1.2 cm. The gallbladder appears within normal limits without calcified gallstones. Biliary system is non-dilated. Pancreas enhances normally. No peripancreatic fat stranding or fluid collections. No pancreatic duct dilatation. The spleen is normal in size. No adrenal nodules. Kidneys demonstrate no hydronephrosis. Multiple bilateral renal cysts are again noted. Peritoneum and bowel: Bowel loops demonstrate normal wall thickness and caliber. No free fluid or air. Nodes and vessels: No retroperitoneal or mesenteric adenopathy by size criteria. Aorta and inferior vena cava are normal in size. Miscellaneous: No ventral hernias. PELVIS: Genitourinary: There is mild trabeculation of the bladder wall again noted consistent with sequelae of chronic bladder outlet obstruction. The prostate is surgically absent. No discrete mass lesion demonstrated in the surgical bed. Miscellaneous: No inguinal hernias or adenopathy. Bones: No suspicious bony lesions. No vertebral body compression fractures. IMPRESSION: 1. No lymphadenopathy or other definite evidence of recurrent disease. 2. Small filling defects within a subsegmental right lower lobe bronchus likely representing mucous plugging. Dictated by: Trenton Iraheta M.D. on 06/15/2020 at 10:11 Approved by: Trenton Iraheta M.D. on 06/15/2020 at 10:41
== END ==
PROVIDERS: Family Provider Internal Medicine; PCP Internal Medicine; Referring Provider Internal Medicine; Visit Provider Internal Medicine Hematology & Oncology
DX: R63.4 Abnormal weight loss (principal); Z85.72 Personal history of non-Hodgkin lymphomas; K76.89 Other specified diseases of liver; N32.89 Other specified disorders of bladder; N28.1 Cyst of kidney, acquired
CPT/HCPCS: 71260; 74177; Q9967

== ENCOUNTER → 2022-02-05 10:04 | Outpatient (CLI) | payer MEDICARE, SELFPAY ==
--- NOTE | 2022-02-05 10:05 | DI.US.S_ITS ---
PROCEDURE: US CAROTID DOPPLER BI INDICATIONS: CENTRAL RETINAL VEIN OCCLUSION TECHNIQUE: Color and pulse Doppler interrogation was performed of both carotid systems, with image documentation and velocity measurements. COMPARISON: None. FINDINGS: Stenosis calculations are based on SRU (Society of Radiologists in Ultrasound) criteria. Right side: Brachial blood pressure: 123/80 mm Hg. Common carotid artery peak systolic velocity: 85 cm/sec. Internal carotid artery peak systolic velocity: 74 cm/sec. Internal carotid artery end diastolic velocity: 27 cm/sec. External carotid artery peak systolic velocity: 68 cm/sec. ICA/CCA peak systolic ratio: 0.9 . Sanches scale imaging description: Minimal plaque at the bifurcation Percent internal carotid artery stenosis: Less than 50% stenosis . Vertebral artery: Flow direction is antegrade. Left side: Brachial blood pressure: 133/75 mm Hg. Common carotid artery peak systolic velocity: 66 cm/sec. Internal carotid artery peak systolic velocity: 76 cm/sec. Internal carotid artery end diastolic velocity: 24 cm/sec. External carotid artery peak systolic velocity: 68 cm/sec. ICA/CCA peak systolic ratio: 1.2. Sanches scale imaging description: Minimal plaque at the bifurcation. Percent internal carotid artery stenosis: Less than 50% stenosis . Vertebral artery: Flow direction is antegrade. IMPRESSION: Less than 50% stenosis of the internal carotid arteries bilaterally. Dictated by: Katherine Flores M.D. on 02/05/2022 at 12:50 Approved by: Katherine Flores M.D. on 02/05/2022 at 12:58
== END ==
PROVIDERS: Family Provider Internal Medicine; PCP Internal Medicine; Referring Provider Internal Medicine; Visit Provider Internal Medicine
DX: I65.23 Occlusion and stenosis of bilateral carotid arteries (principal); H34.8192 Central retinal vein occlusion, unspecified eye, stable
CPT/HCPCS: 93880

== ENCOUNTER → 2022-09-10 09:03 | Outpatient (CLI) | payer MEDICARE, SELFPAY ==
[2022-09-10 11:33] LABS: COVID19 -Nasal RAPID Negative (Negative)
== END ==
PROVIDERS: Family Provider Internal Medicine; PCP Internal Medicine; Visit Provider Surgery
DX: Z01.812 Encounter for preprocedural laboratory examination (principal); Z20.822 Contact with and (suspected) exposure to COVID-19
CPT/HCPCS: 87635

== ENCOUNTER 2022-09-11 06:35 | Day surgery (SDC) | payer MEDICARE, SELFPAY ==
[2022-09-11] VITALS (7 sets, daily range): BP systolic 97–146; BP diastolic 55–77; PULSE 53–70; RESP 13–113; TEMP 36.1–36.8; O2SAT 96–99; BMI 21.0
--- NOTE | 2022-09-11 | PATH_ITS ---
[facility] Accession Number: [id number] . 01 Material submitted: . PART A: colon - DESCENDING COLON PART B: colon - TRANSVERSE COLON . 01 Diagnosis: A. Descending Colon, Biopsy: Tubular adenoma in 1 of 2 fragments. Hyperplastic polyp, 1 fragment. . B. Transverse Colon, Biopsy: Colonic mucosa with a small benign lymphoid aggregate. Negative for dysplasia or malignancy. JNL 09/13/2022 1021 Local . 01 Electronically signed: . Loretta Samuel MD, Pathologist NPI- [id number] . 01 Gross description: . Part A: DESCENDING COLON: Received in formalin are multiple fragment(s) of bernal, soft tissue measuring 1.0 x 0.3 x 0.1 cm in aggregate submitted entirely in 1 cassette(s) Part B: TRANSVERSE COLON: Received in formalin is 1 fragment(s) of bernal, soft tissue measuring 0.3 x 0.2 x 0.1 cm submitted entirely in 1 cassette(s) /CPE 09/12/2022 1115 Local . 01 Pathologist provided ICD-10: D12.4 . 01 CPT . 691450, 850458 Specimen Comment: A courtesy copy of this report has been sent to [phone] Performed at: 01 [facility] [address] [place] [address] [address], [place], [place] [id number] MD Trenton Astudillo MD Phone: [phone]
[2022-09-11] MEDS: LACTATED RINGERS 1,000 ML 200 ML IV (07:17)
--- NOTE | 2022-09-11 07:28 | PM.HP.1 ---
History of Present Illness History of Present Illness Date Patient Seen: 09/11/22 Time Patient Seen: 07:28 Chief complaint: SDC Narrative: The patient presents for colorectal screening. Last colonoscopy 3 years ago demonstrated adenomatous polyps.. No personal or family history of colon cancer. On further history denies any recent gastrointestinal symptoms. No nausea, vomiting, abdominal pain, loss of appetite, unexplained weight loss, change in bowel habits, diarrhea, constipation, melena, hematochezia, or bright red blood per rectum. Patient History Medical History Follicular lymphoma History of adenomatous polyp of colon (03/24/12) History of malignant neoplasm of prostate (03/24/12) Non-Hodgkin's lymphoma (08/13/13) Right bundle branch block (RBBB) (03/24/12) Surgical History Status post radical cystoprostatectomy Family & Social History Family History Father Family hx of prostate cancer Mother Fam hx-ischem heart disease Family history of diabetes mellitus (DM) Social History: household members spouse Tobacco & Substance use: Tobacco type cigarettes Smoking Status Former smoker alcohol intake current alcohol intake frequency holiday/special occasion Substance Use Type does not use Meds Home Medications and Allergies Home Medications Medication Instructions Recorded Confirmed Type leuprolide (3 month) 22.5 mg (3 22.5 mg IM [id number] ##0 11/28/17 09/11/22 History month) intramuscular syringe kit (Lupron Depot) calcium carbonate 500 mg calcium 500 mg PO DAILY 05/04/19 09/11/22 History (1,250 mg) tablet (Calcium 500) multivit with min-folic 1 tab PO DAILY 06/09/20 09/11/22 History acid-lutein 400 mcg-250 mcg chewable tablet (Centrum Silver) Allergies Allergy/AdvReac Type Severity Reaction Status Date / Time penicillin G Allergy Severe SWELLING/?ANAPHYLAXIS Verified 09/11/22 06:54 CHILD doxycycline Allergy Mild RASH Verified 09/11/22 06:54 Iodine and Iodide Containing Allergy Mild TOPICAL Verified 09/11/22 06:54 Produc OKAY shellfish derived Allergy Mild Verified 09/11/22 06:54 Exam Vital Signs (past 8 hours): - 12/06/22 07:08 Temperature 97.0 F L Pulse Rate 70 Respiratory Rate 16 Blood Pressure 146/75 H Pulse Oximetry 96 Oxygen Delivery Method Room Air Oxygen Delivery Method Room Air Narrative Exam Narrative: General adult male alert oriented no acute distress Abdomen soft nontender nondistended Assessment & Plan Assessment & Plan narrative: The patient requires colorectal screening and colonoscopy is recommended. Technical details were discussed. Risks, benefits, alternatives explained. Risks including but not limited to myocardial infarction, aspiration, bleeding, pain, missed lesion, incomplete examination, need for further radiographic studies, colonic perforation, and need for major abdominal surgery were discussed. All questions were answered to their satisfaction, and they are in agreement with this plan. Time Spent With Patient Critical Care time: I spent a total of [] minutes of critical care time on this patient's care today; this time is exclusive of procedural time.
--- NOTE | 2022-09-11 07:30 | PM.OP.COLON ---
Operative Date/Time/Diagnoses Date of procedure: 09/11/22 Time of procedure: 07:30 Pre-op diagnosis: Personal history of colonic polyps Post-op diagnosis: same Procedure & Clinicians Study performed: Colonoscopy Same procedure as scheduled: Yes Indications: Personal history of colonic polyps Surgeon: Ravin Baird Procedure Notes Procedure in detail: The history and physical was performed/updated and the patient is ASA class is 2. The procedure was discussed in detail with the patient. Potential risks complications including infection, bleeding, missed diagnosis, perforation, need for surgery, and were explained. Their questions were answered and informed consent was obtained. Patient was brought to the procedure room and placed standard monitoring equipment. The patient's vital signs were monitored continuously throughout the entire procedure. Prior to starting time-out was performed. The patient was placed in the left lateral recumbent position. Procedural sedation was administered by anesthesia. Examination began with a thorough inspection of the perianal area there was no evidence of fissures, fistulae, external hemorrhoids or cutaneous malignancy. The colonoscopy scope was then placed into the anal canal and was advanced to the cecum, which was identified by the ileocecal valve, the appendiceal orifice and the confluence of the taenia. The scope was then slowly withdrawn examining colon thoroughly in all directions, irrigating it of any residual stool. FINDINGS 1. Transverse colon 5 mm polyp removed with biopsy forceps 2. Sigmoid colon two 5 mm polyps removed with combination of cold snare and biopsy forceps. 3. Sigmoid diverticulosis-mild The patient tolerated the procedure well. They will be discharged once criteria are met. The prep was of good/excellent quality. The withdrawl time was 7 minutes. Specimen(s): other (Transverse colon and sigmoid colonic polyps) Impression: Colonic polyps Post-procedure Recommendations: High fiber diet Plan for aftercare: Follow-up dependent on pathology findings Disposition: same day surgery
--- NOTE | 2022-09-11 08:15 | SUR.PHASEI ---
0813 report given to UTE Hdez
== END 2022-09-11 09:00 | disposition home or self-care (01) ==
PROVIDERS: Family Provider Internal Medicine; PCP Internal Medicine; Referring Provider Surgery; Visit Provider Surgery
PROC: 0DJD8ZZ Inspection of Lower Intestinal Tract, Via Natural or Artificial Opening Endoscopic (ICD-10-PCS; CPT 45378; principal; 2022-09-11 07:45)
DX: Z12.11 Encounter for screening for malignant neoplasm of colon (principal); Z86.010 Personal history of colon polyps; K57.30 Diverticulosis of large intestine without perforation or abscess without bleeding; D12.4 Benign neoplasm of descending colon
CPT/HCPCS: 45385; 45380; J2704; J3010

== ENCOUNTER → 2023-07-05 09:04 | Outpatient (CLI) | payer MEDICARE, SELFPAY ==
[2023-07-05 10:11] LABS: Influenza A - CEPHEID Flu A NEGATIVE (NEGATIVE); Influenza B - CEPHEID Flu B NEGATIVE (NEGATIVE); Respiratory Syncytial Virus Negative (Negative)
[2023-07-05 10:14] LABS: COVID-19 CEPHEID 4-PLEX PCR POSITIVE (Negative)
== END ==
PROVIDERS: Family Provider Internal Medicine; PCP Internal Medicine; Visit Provider Physician Assistant
DX: R05.9 Cough, unspecified (principal)
CPT/HCPCS: 0241U

== ENCOUNTER → 2023-07-05 09:15 | Outpatient (CLI) | payer MEDICARE, SELFPAY ==
--- NOTE | 2023-07-05 09:17 | DI.RAD.S_ITS ---
PROCEDURE: XR CHEST 2V INDICATIONS: concern for pneumonia TECHNIQUE: 2 views of the chest were acquired. COMPARISON: [facility], CR, XR CHEST 2V, 09/24/2019, 11:46. FINDINGS: Surgical changes and devices: None. Lungs and pleura: Lungs are hyperinflated and clear. No pleural effusions or pneumothorax. Mediastinum: Mediastinal contours are normal. Heart size is normal. Bones and chest wall: No suspicious bony abnormalities. Soft tissues appear unremarkable. IMPRESSION: No acute cardiopulmonary disease. Findings of COPD. Dictated by: Yen Rodriguez M.D. on 07/05/2023 at 10:07 Approved by: Yen Rodriguez M.D. on 07/05/2023 at 10:07
== END ==
PROVIDERS: Family Provider Internal Medicine; PCP Internal Medicine; Referring Provider Physician Assistant; Visit Provider Physician Assistant
DX: J44.9 Chronic obstructive pulmonary disease, unspecified (principal); R05.9 Cough, unspecified
CPT/HCPCS: 0241U; 71046; C9803

== ENCOUNTER 2024-02-15 07:21 | Emergency (ER) | payer MEDICARE, SELFPAY ==
[2024-02-15] VITALS (15 sets, daily range): BP systolic 153–191; BP diastolic 77–94; PULSE 59–76; RESP 8–30; TEMP 36.6; O2SAT 96–100; BMI 23.7
--- NOTE | 2024-02-15 07:55 | ED_ITS ---
HPI - General Adult General Chief complaint: Neuro Symptoms/Deficit Stated complaint: Seizure right side Time Seen by Provider: 02/15/24 07:42 Source: patient and family Mode of arrival: Ambulatory Limitations: no limitations History of Present Illness HPI narrative: 79-year-old male with prostate cancer diagnosed in 1995 on Lupron, non-Hodgkin's lymphoma, intermediate grade follicular subtype last dose of Rituxan was in 2012. Patient presents with complaint of spasm of his right scalp neck arm and down into his hand he describes having carpopedal spasm that will happen intermittently for 5 or 10 minutes. He states it happened 2 or 3 times yesterday. He has had this happened in the past. He would asked his oncologist spots who told him they thought that was a calcium deficiency. He states in the past it has been more on the left side but has been a little more frequent this week. He states episode happened while he was driving his vehicle another 1 happened while he was working on a ladder yesterday with his hands above his head. Patient states it resolved on its own feels very tight and spasming. He does not have any alteration in mental status his speech is normal, he has not noticed any changes elsewhere in his body. Patient states no fevers or chills, no chest pain or shortness of breath no nausea or vomiting no issues with bowel movements he is some chronic urinary incontinence and frequency but relates that to his prior prostate surgery. Patient does take calcium supplement, his only other medication is brown. He states he would prior prostatectomy and bunionectomy. He is allergic to penicillin, doxycycline crab and iodine. No history of tobacco, no alcohol or recreational drugs. His oncologist is Dr. Cantu, his primary care is Dr. Albrecht. Related Data Home Medications Medication Instructions Recorded Confirmed leuprolide (3 month) 22.5 mg (3 22.5 mg IM [id number] ##0 11/28/17 02/14/24 month) intramuscular syringe kit (Lupron Depot) calcium carbonate 500 mg calcium 500 mg PO DAILY 05/04/19 02/14/24 (1,250 mg) tablet (Calcium 500) multivit with min-folic 1 tab PO DAILY 06/09/20 02/14/24 acid-lutein 400 mcg-250 mcg chewable tablet (Centrum Silver) ibuprofen 300 mg tablet 600 mg PO Q6H PRN Pain (Scale 12/03/22 02/14/24 Score 4-6) Previous Rx's Medication Instructions Recorded nirmatrelvir 300 mg (150 mg See Rx Instructions PO .COMPLEX 07/05/23 x2)-ritonavir 100 mg tablet,dose #30 ea pack (Paxlovid) Allergies Allergy/AdvReac Type Severity Reaction Status Date / Time penicillin G Allergy Severe SWELLING/?ANAPHYLAXIS Verified 02/14/24 18:34 CHILD doxycycline Allergy Mild RASH Verified 02/14/24 18:34 Iodine and Iodide Containing Allergy Mild TOPICAL Verified 02/14/24 18:34 Produc OKAY shellfish derived Allergy Mild Verified 02/14/24 18:34 Review of Systems Review of Systems ROS Unobtainable: All systems reviewed & are unremarkable except as noted in HPI and below Patient History Medical History Follicular lymphoma Non-Hodgkin's lymphoma (08/13/13) Right bundle branch block (RBBB) (03/24/12) History of adenomatous polyp of colon (03/24/12) History of malignant neoplasm of prostate (03/24/12) Surgical History Status post radical cystoprostatectomy Family History Father Family hx of prostate cancer Mother Fam hx-ischem heart disease Family history of diabetes mellitus (DM) Social History household members: spouse Smoking Status: Former smoker alcohol intake: current Smoking Status: Former smoker alcohol intake frequency: holidays/special occasions only Substance Use Type: does not use Exam Narrative Exam Narrative: GEN: well nourished, well appearing male, alert and oriented x 3, patient appears to be in mild distress. HEENT: Atraumatic, pupils are equal round reactive to light, extraocular movements are intact, nares are clear, TMs are clear with no fluid, there is no conjunctival pallor. Throat is clear without any exudates, erythema, tonsillar enlargement or uvular deviation, no cervical vertebral tenderness. Full range of motion. HEART: Regular rate and rhythm without murmur, clicks, rubs. 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 Patient did not have reoccurrence of symptoms was done pressure cuff on the left upper extremity. NEURO:CN 2-12 intact, sensation normal, reflexes 2/4 upper and lower extremities. finger nose finger test normal Initial Vital Signs Initial Vital Signs: Vital Signs Temperature 97.9 F 02/15/24 07:37 Pulse Rate 75 02/15/24 07:37 Respiratory Rate 18 02/15/24 07:37 Blood Pressure 174/81 H 02/15/24 07:37 Pulse Oximetry 96 02/15/24 07:37 Oxygen Delivery Method Room Air 02/15/24 07:37 Course Orders Ordered: Discontinued Medications Sodium Chloride (Normal Saline 0.9%) 1,000 mls @ 1,000 mls/hr IV BOLUS ONE Stop: 02/15/24 09:52 Last Infusion: 02/15/24 11:23 Dose: Infused Documented By: Admin: 02/15/24 10:37 Dose: 1,000 mls/hr Documented By: MARYAN Vital Signs Vital signs: Vital Signs - 8 hr 02/15/24 07:37 Temperature 97.9 F Pulse Rate 75 Respiratory Rate 18 Blood Pressure 174/81 H Pulse Oximetry 96 Oxygen Delivery Method Room Air Medical Decision Making Lab Data 02/15/24 07:36 02/15/24 07:36 Labs: Lab Results 02/15/24 02/15/24 02/15/24 Range/Units 07:36 08:21 08:21 WBC 4.3 L (4.5-11.0) X10^3/uL RBC 3.98 L (4.5-5.9) X10^6/uL Hgb 12.8 L (13.5-17.5) g/dL Hct 37.7 L (41-53) % MCV 94.9 (80-100) fL MCH 32.1 (26-34) PG MCHC 33.8 (30-36) % RDW 14.2 (11.6-14.8) % Plt Count 167 (150-400) X10^3/uL Neut % (Auto) 68.8 (50-75) % Lymph % (Auto) 18.2 L (25-40) % [place] % (Auto) 10.1 (3-14) % Eos % (Auto) 1.9 L (2-4) % Baso % (Auto) 1.0 (0-2) % Neut # (Auto) 3000 (6097-0472) /uL Lymph # (Auto) 800 L (7272-9804) /uL [place] # (Auto) 400 (0-900) /uL Eos # (Auto) 100 (0-450) /uL Baso # (Auto) 0 (0-100) /uL Sodium 140 (137-145) mmol/L Potassium 4.2 (3.4-5.1) mmol/L Chloride 108 H (98-107) mmol/L Carbon Dioxide 27 (22-32) mmol/L BUN 22 H (9-20) mg/dL Creatinine 0.93 (0.66-1.25) mg/dL Estimated GFR > 60 (>60) mL/min BUN/Creatinine Ratio 23.7 H (6-22) Glucose 91 (80-110) mg/dL Calcium 9.3 (8.4-10.2) mg/dL Phosphorus 3.1 (2.3-3.7) mg/dL Magnesium 2.4 H (1.6-2.3) mg/dL Total Bilirubin 0.6 (0.2-1.3) mg/dL AST 27 (17-59) IU/L ALT 21 (<50) IU/L Alkaline Phosphatase 68 (38-126) U/L Total Protein 7.2 (6.3-8.2) g/dL Albumin 4.5 (3.5-5.0) g/dL Globulin 2.7 (1.7-4.1) g/dL Albumin/Globulin Ratio 1.7 (1.0-2.8) Lipase 165 (23-300) U/L TSH 1.46 (0.47-4.68) uIU/mL Urine Color Yellow Urine Appearance Clear Urine pH 6.5 Normal (4.5-8.0) Ur Specific [place] 1.020 (1.000-1.035) Urine Protein Negative (Negative) Urine Glucose (UA) Negative (Negative) g/dL Urine Ketones Negative (NEGATIVE) Urine Occult Blood Negative (Negative) Urine Nitrate Negative (Negative) Urine Bilirubin Negative (NEGATIVE) Urine Urobilinogen 0.2 (0.2) E.U./dL Ur Leukocyte Esterase Negative (NEGATIVE) Urine RBC None seen (0-5/HPF) Urine WBC 0-1/hpf (0-5/HPF) Ur Squamous Epith Cells None seen (0-5/HPF) Urine Bacteria None seen (None) Ur Culture Indicated? Cult not indicated Vol Urine Centrifuged 10ml (spun) U Opiates 300ng/mL cut Negative (Negative) Ur Oxycodone Screen Negative (Negative) Urine Methadone Screen Negative (Negative) Ur Barbiturates Screen Negative (Negative) U Tricyclic Antidepress Negative (Negative) Ur Phencyclidine Scrn Negative (Negative) Ur Amphetamines Screen Negative (Negative) U Methamphetamines Scrn Negative (Negative) Ur MDMA Scrn (Ecstasy) Negative (Negative) U Benzodiazepines Scrn Negative (Negative) Urine Cocaine Screen Negative (Negative) U Marijuana (THC) Screen Negative (Negative) Urine Specific [place] Normal (Normal) Ethyl Alcohol < 10 ( - 10) mg/dL Ur Creatinine Normal (Normal) Imaging Data CT scan - head: Radiologist's Impression: Close Head CT (Signed) Katherine Flores - 02/15/[address] (Signed) Katherine Flores - 02/15/24 Chest X-Ray (Signed) Yen Rodriguez - 07/05/23 Carotid Doppler Study (Signed) Katherine Flores - 02/05/22 Chest/Abdomen/Pelvis CT (Signed) Trenton Iraheta - 06/15/20 Bone Scan Nuclear Medicine (Signed) Elinor Encarnacion - 12/31/19 Pelvis MRI (Signed) Bridger Hung - 11/26/19 Chest X-Ray (Signed) Bridger Hung - 09/24/19 Telemetry Strips 09/10/19 Telemetry Strips 03/06/19 Launch?[address] [address] [address] Scan Report Signed Patient: Lazarus Loya MR#: [id number] : 1945 Acct:[id number] Age/Sex: 79 / M Date of Service: 02/15/24 Loc: ED Accession Number: [id number] Procedure: CT head/brain wo con Ordering Provider: Shelley Lopez D.O. PROCEDURE: CT HEAD/BRAIN WO CON INDICATIONS: spasm right hand intermittent, hx prostate ca and lymphoma TECHNIQUE: Noncontrast 4.5 mm thick angled axial sections acquired from the foramen magnum to the vertex, with coronal and sagittal reformats. For radiation dose reduction, the following was used: automated exposure control, adjustment of mA and/or kV according to patient size. COMPARISON: [facility], CT, CT CERVICAL SPINE WO CON, 02/15/2024, 8:30. FINDINGS: Image quality: Diagnostic. CSF spaces: Basal cisterns are patent. No extra-axial fluid collections. The ventricles are symmetric in size and shape. Brain: No intracranial bleeds or masses. There is cerebral volume loss for age, with resultant ventricular and sulcal prominence. There are periventricular and deep white matter chronic small vessel ischemic changes. There is intracranial internal carotid artery atherosclerosis. Skull and face: Calvarium and visualized facial bones appear intact, without suspicious lesions. Sinuses: Visualized sinuses and mastoids are clear. IMPRESSION: 1. No acute intracranial process. 2. Moderate atrophy and chronic microvascular ischemic changes. Dictated by: Katherine Flores M.D. on 02/15/2024 at 9:10 Approved by: Katherine Flores M.D. on 02/15/2024 at 9:10 CT - cervical spine: Radiologist's Impression: Lazarus Loya??79??M??1945 ? Allergy/Adv: penicillin G, doxycycline, Iodine and Iodide Containing Produc, shellfish derived (More??) Close Head CT (Signed) Katherine Flores - 02/15/[address] (Signed) Katherine Flores - 02/15/24 Chest X-Ray (Signed) Yen Rodriguez - 07/05/23 Carotid Doppler Study (Signed) Katherine Flores - 02/05/22 Chest/Abdomen/Pelvis CT (Signed) Trenton Iraheta - 06/15/20 Bone Scan Nuclear Medicine (Signed) Elinor Encarnacion - 12/31/19 Pelvis MRI (Signed) Bridger Hung - 11/26/19 Chest X-Ray (Signed) Bridger Hung - 09/24/19 Telemetry Strips 09/10/19 Telemetry Strips 03/06/19 Launch?[place] [id number] CT Scan Report Signed Patient: Lazarus Loya MR#: [id number] : 1945 Acct:[id number] Age/Sex: 79 / M Date of Service: 02/15/24 Loc: ED Accession Number: [id number] Procedure: CT cervical spine wo con Ordering Provider: Shelley Lopez D.O. PROCEDURE: CT CERVICAL SPINE WO CON INDICATIONS: spasm right hand intermittent, hx prostate ca and lymphoma TECHNIQUE: Noncontrast 3 mm thick sections acquired from the skull base to the T4 level. Sagittal and coronal reformats were then constructed. For radiation dose reduction, the following was used: automated exposure control, adjustment of mA and/or kV according to patient size. COMPARISON: None. FINDINGS: Image quality: Excellent. Bones: No fractures or dislocations. Visualized superior ribs are intact. Soft tissues: Prevertebral soft tissues are normal in thickness. No paravertebral hematomas. No apical pneumothoraces. IMPRESSION: No displaced fracture or traumatic subluxation. Dictated by: Katherine Flores M.D. on 02/15/2024 at 9:09 Approved by: Katherine Flores M.D. on 02/15/2024 at 9:10 ECG Data Attestation: I personally reviewed and interpreted this ECG as follows: Prior ECG tracings: available for review Interpretation: Sinus rhythm occasional PACs, right bundle-branch block. Patient has rate of 85, [place] 136 QRS of 150 QTC of 480. No acute ST changes. Patient has prior from 01/10/2016. [facility] Narrative Medical decision making narrative: 79-year-old male who has had what sounds like carpal pedal spasms which are consistent with hypocalcemia but are only on the right side currently has had them on the left intermittently. He has been told by his oncologist his calcium can be off sometimes from his Lupron he does take supplemental calcium along with his regular vitamins and Lupron. Plan for labs to evaluate for electrolyte abnormalities renal dysfunction, anemia and head CT and C-spine as patient does have a cancer history evaluate for any mass lesions or other changes to the spine. Patient's exam here is overall benign, no weakness, no sensation changes. No hyperreflexia. Labs show white count of 4.3 consistent with priors hemoglobin of 12.8 also consistent with priors platelets of 167. EKG has a right bundle-branch block sodium is 140 potassium is 4 2 chloride 108 CO2 is 27 BUN 22 creatinine 0.93, magnesium slightly elevated 2.4 glucose is 91 with a calcium of 9.3 and a phos of 3.1 otherwise normal electrolyt. TSH is 1.46 ETOH negative, UDS and UA showed no clear cause of symptoms. Head CT shows no acute change C-spine CT shows no acute change. Patient appears to be having carpopedal spasm but localized he has not had any additional episodes here. Suspicion for seizure is less likely as he has had this on and off in the past on the opposite side but not on the right side. Discussed with patient would like her to follow up with primary care for recheck we discussed return precautions all questions answered patient and family feel comfortable with this plan. Discharge Plan Departure Patient Disposition: Home Clinical Impression: Carpopedal spasm Activity Restrictions/Additional Instructions: Please follow-up with your oncologist and/or primary care physician for follow- up. You appear to be having carpopedal spasms, I have not found the clear source today make sure you are well hydrated your magnesium was slightly elevated this might contribute. Your physician may order some additional labs and workup. Please return for new or worsening symptoms altered mental status, new chest pain or shortness of breath, passing out, persistent vomiting, changing pattern or worsening symptoms or other new or concerning changes. Prescriptions: No Action Paxlovid 300 mg (150 mg x 2)-100 mg tablets,dose pack See Rx Instructions PO .COMPLEX Qty: 30 0RF Rx Instructions: take TWO 150 mg tablets of nirmatrelvir with ONE 100 mg tablet of ritonavir twice daily for 5 days PO. Do not take your supplements until completing this medication. Lupron Depot (3 month) 22.5 MG syringe kit 22.5 mg IM [id number] Qty: 0 calcium carbonate [Calcium 500] 500 mg calcium (1,250 mg) Tablet 500 mg PO DAILY Centrum Silver 400-250 mcg Tablet,Chewable 1 tab PO DAILY Motrin 300 mg Tablet 600 mg PO Q6H PRN (Reason: Pain (Scale Score 4-6)) Referrals: Lazarus Albrecht MD [Primary Care Provider] - Stand Alone Forms: Patient Portal/API
--- NOTE | 2024-02-15 08:13 | DI.CT.S_ITS ---
PROCEDURE: CT CERVICAL SPINE WO CON INDICATIONS: spasm right hand intermittent, hx prostate ca and lymphoma TECHNIQUE: Noncontrast 3 mm thick sections acquired from the skull base to the T4 level. Sagittal and coronal reformats were then constructed. For radiation dose reduction, the following was used: automated exposure control, adjustment of mA and/or kV according to patient size. COMPARISON: None. FINDINGS: Image quality: Excellent. Bones: No fractures or dislocations. Visualized superior ribs are intact. Soft tissues: Prevertebral soft tissues are normal in thickness. No paravertebral hematomas. No apical pneumothoraces. IMPRESSION: No displaced fracture or traumatic subluxation. Dictated by: Katherine Flores M.D. on 02/15/2024 at 9:09 Approved by: Katherine Flores M.D. on 02/15/2024 at 9:10
--- NOTE | 2024-02-15 08:13 | DI.CT.S_ITS ---
PROCEDURE: CT HEAD/BRAIN WO CON INDICATIONS: spasm right hand intermittent, hx prostate ca and lymphoma TECHNIQUE: Noncontrast 4.5 mm thick angled axial sections acquired from the foramen magnum to the vertex, with coronal and sagittal reformats. For radiation dose reduction, the following was used: automated exposure control, adjustment of mA and/or kV according to patient size. COMPARISON: [facility], CT, CT CERVICAL SPINE WO CON, 02/15/2024, 8:30. FINDINGS: Image quality: Diagnostic. CSF spaces: Basal cisterns are patent. No extra-axial fluid collections. The ventricles are symmetric in size and shape. Brain: No intracranial bleeds or masses. There is cerebral volume loss for age, with resultant ventricular and sulcal prominence. There are periventricular and deep white matter chronic small vessel ischemic changes. There is intracranial internal carotid artery atherosclerosis. Skull and face: Calvarium and visualized facial bones appear intact, without suspicious lesions. Sinuses: Visualized sinuses and mastoids are clear. IMPRESSION: 1. No acute intracranial process. 2. Moderate atrophy and chronic microvascular ischemic changes. Dictated by: Katherine Flores M.D. on 02/15/2024 at 9:10 Approved by: Katherine Flores M.D. on 02/15/2024 at 9:10
[2024-02-15 08:35] LABS: Appearance Urine UA CLEAR; Bilirubin Urine UA NEGATIVE (NEGATIVE); Color Urine UA YELLOW; Glucose Urine UA NEGATIVE (Negative); Ketones Urine UA NEGATIVE (NEGATIVE); Leukocyte Esterase Urine UA NEGATIVE (NEGATIVE); Nitrite Urine UA NEGATIVE (Negative); Occult Blood Urine UA NEGATIVE (Negative); Protein Urine UA NEGATIVE (Negative); Urobilinogen Urine UA 0.2 E.U./dL (0.2); pH Urine UA 6.5 (4.5-8.0)
[2024-02-15 08:35] LABS: Add Manual Diff / Slide Review NO; Basophils Absolute Auto 0 /uL (0-100); Eosinophils Absolute Auto 100 /uL (0-450); Eosinophils Percent Auto 1.9 % (2-4); Hematocrit 37.7 % (41-53); Hemoglobin 12.8 g/dL (13.5-17.5); Lymphocytes Absolute Auto 800 /uL (1100-4500); Lymphocytes Percent Auto 18.2 % (25-40); Mean Corpuscular HGB Conc 33.8 % (30-36); Mean Corpuscular Hemoglobin 32.1 PG (26-34); Mean Corpuscular Volume 94.9 fL (80-100); Monocytes Absolute Auto 400 /uL (0-900); Monocytes Percent Auto 10.1 % (3-14); Neutrophils Absolute Auto 3000 /uL (1500-7000); Neutrophils Percent Auto 68.8 % (50-75); Platelet Count 167 X10^3/uL (150-400); Red Blood Cell Count 3.98 X10^6/uL (4.5-5.9); Red Cell Distribution Width 14.2 % (11.6-14.8); White Blood Cell Count 4.3 X10^3/uL (4.5-11.0)
[2024-02-15 08:40] LABS: UR Morphine/Opiate cutoff 300 Negative (Negative); Ur Creatinine Normal (Normal); Ur Specific Gravity Normal (Normal); Urine Amphetamines Negative (Negative); Urine Barbiturates Negative (Negative); Urine Benzodiazepines Negative (Negative); Urine Cocaine Negative (Negative); Urine MDMA Negative (Negative); Urine Methadone Negative (Negative); Urine Methamphetamines Negative (Negative); Urine Oxycodone Negative (Negative); Urine Phencyclidine Negative (Negative); Urine Tetrahydrocannabinol Negative (Negative); Urine Tricyclic Antidepressant Negative (Negative); Urine pH Normal (Normal)
[2024-02-15 08:42] LABS: Alanine Aminotransferase 21 IU/L (<50); Albumin 4.5 g/dL (3.5-5.0); Albumin Globulin Ratio 1.7 (1.0-2.8); Alkaline Phosphatase 68 U/L (38-126); Aspartate Aminotransferase 27 IU/L (17-59); BUN Creatinine Ratio 23.7 (6-22); Bilirubin Total 0.6 mg/dL (0.2-1.3); Blood Urea Nitrogen 22 mg/dL (9-20); Calcium 9.3 mg/dL (8.4-10.2); Carbon Dioxide 27 mmol/L (22-32); Chloride 108 mmol/L (98-107); Estimated Glomerular Filt Rate > 60 mL/min (>60); Ethanol (ETOH) < 10 mg/dL; Globulin 2.7 g/dL (1.7-4.1); Glucose 91 mg/dL (80-110); HEMOLYSIS < 15 (0-50); Lipase 165 U/L (23-300); Magnesium 2.4 mg/dL (1.6-2.3); Phosphorous 3.1 mg/dL (2.3-3.7); Potassium 4.2 mmol/L (3.4-5.1); Sodium 140 mmol/L (137-145); Total Protein 7.2 g/dL (6.3-8.2)
[2024-02-15 08:47] LABS: Bacteria Urine None Seen; Culture Indicated Urine Cult Not Indicated; RBC Urine None Seen (0-5/HPF); Squamous Epithelial Cell Urine None Seen (0-5/HPF); Urine Volume 10mL (spun); WBC Urine 0-1/HPF (0-5/HPF)
[2024-02-15 09:12] LABS: TSH w/ Reflex to FT4 1.46 uIU/mL (0.47-4.68)
[2024-02-15] MEDS: SODIUM CHLORIDE 0.9% 1,000 ML 1000 ML IV (10:37)
== END 2024-02-15 11:20 | disposition home or self-care (01) ==
PROVIDERS: Emergency Provider Emergency Medicine; Family Provider Internal Medicine; PCP Internal Medicine
DX: R29.0 Tetany (principal); I49.1 Atrial premature depolarization; I45.10 Unspecified right bundle-branch block
CPT/HCPCS: 36415; 70450; 72125; 80053; 80305; 80320; 81001; 83690; 83735; 84100; 84443; 85025; 93005; 93010; 99284

== ENCOUNTER → 2024-02-21 10:35 | Outpatient (CLI) | payer MEDICARE, SELFPAY ==
[2024-02-21 17:33] LABS: BUN Creatinine Ratio 22.3 (6-22); Blood Urea Nitrogen 21 mg/dL (9-20); C-Reactive Protein Quant < 0.5 mg/dL (<1.0); Calcium 9.2 mg/dL (8.4-10.2); Carbon Dioxide 31 mmol/L (22-32); Chloride 103 mmol/L (98-107); Creatine Kinase 174 U/L (55-170); Estimated Glomerular Filt Rate > 60 mL/min (>60); Glucose 174 mg/dL (80-110); HEMOLYSIS < 15 (0-50); Magnesium 2.5 mg/dL (1.6-2.3); Potassium 4.4 mmol/L (3.4-5.1); Sodium 136 mmol/L (137-145)
[2024-02-22 21:06] LABS: Ionized Calcium 5.1 mg/dL (4.5-5.6)
== END ==
PROVIDERS: Family Provider Internal Medicine; PCP Internal Medicine; Referring Provider Internal Medicine; Visit Provider Internal Medicine
DX: R29.0 Tetany (principal); M62.40 Contracture of muscle, unspecified site; C61 Malignant neoplasm of prostate
CPT/HCPCS: 36415; 80048; 82330; 82550; 83735; 86140

== ENCOUNTER → 2024-06-26 08:02 | Outpatient (CLI) | payer MEDICARE, SELFPAY ==
--- NOTE | 2024-06-26 08:36 | DI.RAD.S_ITS ---
PROCEDURE: XR CHEST 2V INDICATIONS: Dyspnea, cough TECHNIQUE: 2 views of the chest were acquired. COMPARISON: [facility], CR, XR CHEST 2V, 07/05/2023, 9:22. FINDINGS: New compared to the prior exam, asymmetric ill-defined opacification is noted in the right lower hemithorax on the frontal image but without a definite correlate on the lateral image may represent asymmetric right chest wall soft tissues, versus right middle lobe opacification, pneumonia, rounded atelectasis or other process. CT chest may be useful for further evaluation. New mild bilateral perihilar and lower lobe peribronchial thickening, bronchitis, bronchopneumonia, viral infection or other process. Mild calcifications of the aortic arch unchanged. Moderate degenerate changes of the thoracic spine unchanged. No pneumothorax, no pleural effusion. Cardiopericardial silhouette and pulmonary vasculature within normal limits. IMPRESSION: New asymmetric opacification right lower hemithorax as discussed above. New mild bilateral perihilar and lower lobe peribronchial thickening, bronchitis, bronchopneumonia, viral infection or other process. Follow-up suggested. CT chest may be useful for further evaluation. Dictated by: Daren Ravi M.D. on 06/26/2024 at 9:02 Approved by: Daren Ravi M.D. on 06/26/2024 at 9:09
[2024-06-26 08:53] LABS: Influenza A - CEPHEID Flu A NEGATIVE (NEGATIVE); Influenza B - CEPHEID Flu B NEGATIVE (NEGATIVE); Respiratory Syncytial Virus Negative (Negative)
[2024-06-26 11:02] LABS: COVID-19 CEPHEID 4-PLEX PCR Negative (Negative)
== END ==
PROVIDERS: Family Provider Internal Medicine; PCP Internal Medicine; Referring Provider Physician Assistant Surgical; Visit Provider Physician Assistant Surgical
DX: R05.1 Acute cough (principal); J02.9 Acute pharyngitis, unspecified; R06.00 Dyspnea, unspecified; R09.81 Nasal congestion
CPT/HCPCS: 0241U; 71046; 87070

== ENCOUNTER → 2024-12-10 11:36 | Outpatient (CLI) | payer MEDICARE, SELFPAY ==
--- NOTE | 2024-12-10 11:37 | DI.US.S_ITS ---
PROCEDURE: US CAROTID DOPPLER BI INDICATIONS: vision changes, hx retinal vein occlusion R eye TECHNIQUE: Color and pulse Doppler interrogation was performed of both carotid systems, with image documentation and velocity measurements. COMPARISON: [facility], , US CAROTID DOPPLER BI, 02/05/2022, 10:28. FINDINGS: Stenosis calculations are based on SRU (Society of Radiologists in Ultrasound) criteria. Right side: Brachial blood pressure: 119/71 mm Hg. Common carotid artery peak systolic velocity: 77 cm/sec. Internal carotid artery peak systolic velocity: 107 cm/sec. Internal carotid artery end diastolic velocity: 33 cm/sec. External carotid artery peak systolic velocity: 104 cm/sec. ICA/CCA peak systolic ratio: 1.4 . Sanches scale imaging description: Mild atherosclerotic plaques Percent internal carotid artery stenosis: Less than 50% . Vertebral artery: Flow direction is antegrade. Left side: Brachial blood pressure: 116/70 mm Hg. Common carotid artery peak systolic velocity: 80 cm/sec. Internal carotid artery peak systolic velocity: 125 cm/sec. Internal carotid artery end diastolic velocity: 28 cm/sec. External carotid artery peak systolic velocity: 102 cm/sec. ICA/CCA peak systolic ratio: 1.6 . Sanches scale imaging description: [id number] atherosclerotic plaques Percent internal carotid artery stenosis: 50-69% stenosis . Vertebral artery: Flow direction is antegrade. IMPRESSION: 1. In the right carotid artery, there is less than 50 % stenosis based on peak systolic velocity criteria. 2. In the left carotid artery, there is 50-69% stenosis based on peak systolic velocity criteria. 3. Antegrade vertebral arteries. Dictated by: Mauricio Beyer M.D. on 12/10/2024 at 17:08 Approved by: Mauricio Beyer M.D. on 12/10/2024 at 17:09
== END ==
LOC: US 11:36
PROVIDERS: Family Provider Internal Medicine; PCP Internal Medicine; Referring Provider Internal Medicine; Visit Provider Internal Medicine
DX: I65.23 Occlusion and stenosis of bilateral carotid arteries (principal)
CPT/HCPCS: 93880

== ENCOUNTER → 2024-12-26 07:43 | Outpatient (CLI) | payer MEDICARE, SELFPAY ==
[2024-12-26 08:51] LABS: Alanine Aminotransferase 24 IU/L (<50); Albumin 4.4 g/dL (3.5-5.0); Albumin Globulin Ratio 1.8 (1.0-2.8); Alkaline Phosphatase 69 U/L (38-126); Aspartate Aminotransferase 34 IU/L (17-59); BUN Creatinine Ratio 21.9 (6-22); Bilirubin Total 0.5 mg/dL (0.2-1.3); Blood Urea Nitrogen 23 mg/dL (9-20); Calcium 9.4 mg/dL (8.4-10.2); Carbon Dioxide 30 mmol/L (22-32); Chloride 104 mmol/L (98-107); Cholesterol 162 mg/dL (140-199); Estimated Glomerular Filt Rate > 60 mL/min (>60); Globulin 2.4 g/dL (1.7-4.1); Glucose 95 mg/dL (80-110); HDL Cholesterol 81 mg/dL (40-60); HEMOLYSIS < 15 (0-50); LDL Cholesterol Calculated 72 mg/dL (<100); Potassium 4.4 mmol/L (3.4-5.1); Sodium 139 mmol/L (137-145); Total Protein 6.8 g/dL (6.3-8.2); Triglycerides 44 mg/dL (35-150)
== END ==
PROVIDERS: Family Provider Internal Medicine; PCP Internal Medicine; Referring Provider Internal Medicine; Visit Provider Internal Medicine
DX: I77.9 Disorder of arteries and arterioles, unspecified (principal)
CPT/HCPCS: 36415; 80053; 80061

== ENCOUNTER → 2025-07-03 09:45 | Outpatient (CLI) | payer MEDICARE, SELFPAY ==
[2025-07-03 10:36] LABS: Influenza A - CEPHEID Flu A NEGATIVE (NEGATIVE); Influenza B - CEPHEID Flu B NEGATIVE (NEGATIVE)
[2025-07-03 10:41] LABS: COVID-19 CEPHEID 4-PLEX PCR Negative (Negative)
== END ==
PROVIDERS: Family Provider Internal Medicine; PCP Internal Medicine; Visit Provider Chiropractor
DX: R05.1 Acute cough (principal); J02.9 Acute pharyngitis, unspecified
CPT/HCPCS: 87070; 87637; 87880